=== PATIENT | female | born 1995 | race Caucasian/White ===

== ENCOUNTER 2018-01-01 22:24 | Emergency (ER) | payer SELFPAY ==
[2018-01-01 22:46] VITALS: BP 100/55; BMI 21.4
[2018-01-02] MEDS ORDERED: MOTRIN TAB 800 MG PO STA (01:29)
[2018-01-02] MEDS ORDERED: FLEXERIL TAB 10 MG PO STA (01:29)
[2018-01-02] MEDS ORDERED: TORADOL TAB PO ONE ×2 (01:32→02:04)
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
[2018-01-02] MEDS ORDERED: FLEXERIL TAB 10 MG ONE (02:04)
[2018-01-02] MEDS ORDERED: MOTRIN TAB 800 MG PO ONE (02:04)
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
== END 2018-01-02 02:40 | disposition home or self-care (01) ==
LOC: ER 22:24
DX: M62.838 Other muscle spasm (principal); M62.830 Muscle spasm of back; M54.5 Low back pain; V89.2XXA Person injured in unspecified motor-vehicle accident, traffic, initial encounter
CPT/HCPCS: 72110; 72125; 99282; 99283